=== PATIENT | female | born 1980 | race Caucasian/White ===

== ENCOUNTER 2023-08-21 14:32 | Emergency (ER) | payer SELFPAY ==
[2023-08-21 14:34] VITALS: BP 173/97; PULSE 109; RESP 20; TEMP 36.6; O2SAT 100; BMI 22.1
--- NOTE | 2023-08-21 14:40 | PC.NURSE ---
[facility] AT BEDSIDE
--- NOTE | 2023-08-21 14:41 | ED_ITS ---
Discharge Plan Disposition Patient Disposition: Home, Self-Care Condition: Good Referrals Follow up/Referrals: Provider,Referral, MD [Primary Care Provider] - See instructions Activity Restrictions/Add. Instructions Additional Instructions/Restrictions: Continue to take Motrin 800 mg every 8 hours along with alternating Tylenol 1000 mg every 8 hours as needed for symptoms. Follow-up with PCP or return to ER for any worsening signs or symptoms. Clinical Impressions Clinical Impression: Headache Qualifiers: Headache type: unspecified Headache chronicity pattern: episodic headache Intractability: intractable Qualified Code(s): R51.9 - Headache, unspecified Discharge ED Provider: Bebo Braga General Adult HPI <UMESH Schaeffer - Last Filed: 08/21/23 18:09> General Chief complaint: Headache Stated complaint: headache x 5 days Time Seen by Provider: 08/21/23 14:39 History of Present Illness HPI narrative: Patient presents for evaluation of an intractable migraine headache x 5 days. Patient has been trying [id number] Excedrin that would temporarily make her headache better but not completely go away but it has been persistent for 5 days. Patient denies any other constitutional symptoms including cough fever chest pain nausea vomiting shortness of breath diarrhea hemoptysis hematochezia melena hematemesis hematuria diaphoresis. Related Data Allergies Allergy/AdvReac Type Severity Reaction Status Date / Time amoxicillin Allergy Mild Verified 08/21/23 15:01 iodine Allergy Mild Verified 08/21/23 15:01 Penicillins Allergy Mild Verified 08/21/23 15:01 PFSH <UMESH Schaeffer - Last Filed: 08/21/23 18:09> [facility] Disclaimer: The information contained in this section may have been updated after the patient was seen, as this information can be updated by other users. Social History (Updated 08/21/23 @ 18:09 by UMESH Schaeffer) Smoking Status: Current every day smoker alcohol intake: never current occupational status: employed Travel in the last 8 weeks: None <UMESH Schaeffer - Last Filed: 08/21/23 18:09> ROS Obtained: Yes Systems reviewed as appropriate & no additional complaints except as documented Physical Exam <UMESH Schaeffer - Last Filed: 08/21/23 18:09> General General appearance: alert and in no apparent distress Head Head exam: atraumatic, normocephalic and normal inspection Eye Eye exam: Present normal appearance, PERRL and EOMI ENT ENT exam: Present normal exam, normal oropharynx and mucous membranes moist Neck Neck exam: Present normal inspection, full ROM and other (No nuchal rigidity no meningeal signs); Absent lymphadenopathy Chest Chest inspection: Present normal inspection and symmetric chest wall rise Respiratory Respiratory exam: Present normal lung sounds bilaterally; Absent respiratory distress, wheezes or accessory muscle use Cardiovascular Cardiovascular exam: Present regular rate, normal rhythm, normal heart sounds, +S1 and +S2 Abdominal Exam Abdominal exam: Present soft and normal bowel sounds; Absent tenderness Extremities Exam Extremities exam: Present normal inspection and full ROM Back Exam Back exam: Present normal inspection and full ROM; Absent tenderness Neurological Exam Neurological exam: Present alert and oriented X3 Psychiatric Psychiatric exam: Present normal affect and normal mood Skin Skin exam: Present warm, dry and normal color Medical Decision Making <UMESH Schaeffer - Last Filed: 08/21/23 18:09> Medical Records Medical records reviewed: Yes I reviewed the patient's medical records. Isidro Inquiry Pt receiving controlled substance: No Vital Signs: 08/21/23 14:34 08/21/23 15:43 08/21/23 16:37 Temperature 97.9 F 98.2 F Temperature Source Oral Pulse Rate 66 75 Pulse Rate [Right] 109 H Respiratory Rate 20 16 16 Blood Pressure 120/69 126/75 Blood Pressure [Left Arm] 173/97 H Blood Pressure Mean [Left Arm] 122 Blood Pressure Source Automatic Cuff Blood Pressure Source [Left Arm] Automatic Cuff Blood Pressure Position Sitting 02 Sat by Pulse Oximetry 100 92 L Oxygen Delivery Method Room Air Room Air Room Air Lab Data Lab results reviewed: Yes I reviewed the patient's lab results. Lab Results 08/21/23 14:43: SARS-CoV-2 (PCR) Not detected, Influenza A Untype (PCR) Not de tected, Influenza Type B (PCR) Not detected Orders (Tests/Meds): ED MEDICATIONS Discontinued Medications Generic Name Dose Route Start Last Admin Trade Name Freq PRN Reason Stop Dose Admin Dexamethasone Sodium Phosphate 8 mg 08/21/23 14:42 08/21/23 15:08 Dexamethasone 4mg/Ml 1ml Vial IV 08/21/23 14:43 8 mg ONCE ONE Administration Diphenhydramine HCl 50 mg 08/21/23 14:42 08/21/23 15:07 Diphenhydramine 50mg/Ml Vial IV 08/21/23 14:43 50 mg ONCE ONE Administration Ketorolac Tromethamine 15 mg 08/21/23 14:42 08/21/23 15:09 Ketorolac 30mg/Ml Vial IV 08/21/23 14:43 15 mg ONCE ONE Administration Prochlorperazine Edisylate 10 mg 08/21/23 14:42 08/21/23 15:09 Prochlorperazine 10mg/2ml Vial IV 08/21/23 14:43 10 mg ONCE ONE Administration ORDERS Category Date Time Status Rapid PCR Covid and Flu A/B Stat Lab 08/21/23 14:43 Completed Medical Decision Narrative: In summary patient is a 42-year-old female who presents to the emergency department for evaluation of tractable headache. Patient is hemodynamically stable upon arrival, afebrile. Physical exam is unremarkable with no focal findings including no nuchal rigidity no meningeal signs normal vision and no focal neurologic deficits. Breath sounds are equal bilaterally posterior pharynx is normal with no nodes in the cervical chains. Differential diagnosis includes migraine headache versus possible intracranial abnormality versus viral bacterial infection. Initial workup will be conducted with hematologic labs and COVID and flu swabs. Initial interventions include Compazine Toradol Benadryl and Decadron. Initial workup reviewed by me shows that her hematologic labs are unremarkable and her COVID and flu swabs are negative.. Upon repeat evaluation patient had moderate improvement in her headache symptoms. Given this appropriate for discharge with instruction to continue taking Tylenol Motrin alternating every 4 hours for headache symptoms. Return to PCP or ER for any worsening in her symptoms or change in condition. Patient verbalized understanding and agreement <Bebo Braga MD - Last Filed: 08/22/23 11:19> Vital Signs: 08/21/23 14:34 08/21/23 15:43 08/21/23 16:37 Temperature 97.9 F 98.2 F Temperature Source Oral Pulse Rate 66 75 Pulse Rate [Right] 109 H Respiratory Rate 20 16 16 Blood Pressure 120/69 126/75 Blood Pressure [Left Arm] 173/97 H Blood Pressure Mean [Left Arm] 122 Blood Pressure Source Automatic Cuff Blood Pressure Source [Left Arm] Automatic Cuff Blood Pressure Position Sitting 02 Sat by Pulse Oximetry 100 92 L Oxygen Delivery Method Room Air Room Air Room Air Lab Data Lab Results 08/21/23 14:43: SARS-CoV-2 (PCR) Not detected, Influenza A Untype (PCR) Not detected, Influenza Type B (PCR) Not detected Orders (Tests/Meds): ED MEDICATIONS Discontinued Medications Generic Name Dose Route Start Last Admin Trade Name Paulina PRN Reason Stop Dose Admin Dexamethasone Sodium Phosphate 8 mg 08/21/23 14:42 08/21/23 15:08 Dexamethasone 4mg/Ml 1ml Vial IV 08/21/23 14:43 8 mg ONCE ONE Administration Diphenhydramine HCl 50 mg 08/21/23 14:42 08/21/23 15:07 Diphenhydramine 50mg/Ml Vial IV 08/21/23 14:43 50 mg ONCE ONE Administration Ketorolac Tromethamine 15 mg 08/21/23 14:42 08/21/23 15:09 Ketorolac 30mg/Ml Vial IV 08/21/23 14:43 15 mg ONCE ONE Administration Prochlorperazine Edisylate 10 mg 08/21/23 14:42 08/21/23 15:09 Prochlorperazine 10mg/2ml Vial IV 08/21/23 14:43 10 mg ONCE ONE Administration ORDERS Category Date Time Status Rapid PCR Covid and Flu A/B Stat Lab 08/21/23 14:43 Completed Medical Decision Narrative: In summary patient is a 42-year-old female who presents to the emergency department for evaluation of tractable headache. Patient is hemodynamically stable upon arrival, afebrile. Physical exam is unremarkable with no focal findings including no nuchal rigidity no meningeal signs normal vision and no focal neurologic deficits. Breath sounds are equal bilaterally posterior pharynx is normal with no nodes in the cervical chains. Differential diagnosis includes migraine headache versus possible intracranial abnormality versus viral bacterial infection. Initial workup will be conducted with hematologic labs and COVID and flu swabs. Initial interventions include Compazine Toradol Benadryl and Decadron. Initial workup reviewed by me shows that her hematologic labs are unremarkable and her COVID and flu swabs are negative.. Upon repeat evaluation patient had moderate improvement in her headache symptoms. Given this appropriate for discharge with instruction to continue taking Tylenol Motrin alternating every 4 hours for headache symptoms. Return to PCP or ER for any worsening in her symptoms or change in condition. Patient verbalized understan ding and agreement I was consulted by the CUONG, and we discussed the complexity of the problems being addressed. I approved the treatment and management plan for this patient?s care in the Emergency Department, thus performing a substantive portion of the medical decision making. Bebo Braga MD Critical Care <UMESH Schaeffer - Last Filed: 08/21/23 18:09> Critical Care Time Critical Care Time: No
[2023-08-21 14:59] LABS: Coronavirus 19, PCR Not Detected (NotDetected); Influenza A, PCR Not Detected (NotDetected); Influenza B, PCR Not Detected (NotDetected)
[2023-08-21] MEDS: diphenhydrAMINE 50MG/ML VIAL 50 MG IV (15:07)
[2023-08-21] MEDS: DEXAMETHASONE 4MG/ML 1ML VIAL 8 MG IV (15:08)
[2023-08-21] MEDS: PROCHLORPERAZINE 10MG/2ML VIAL 10 MG IV (15:09)
[2023-08-21] MEDS: KETOROLAC 30MG/ML VIAL 15 MG IV (15:09)
[2023-08-21 15:43] VITALS: BP 120/69; PULSE 66; RESP 16; O2SAT 92
[2023-08-21 16:37] VITALS: BP 126/75; PULSE 75; RESP 16; TEMP 36.8; O2SAT 98
== END 2023-08-21 16:40 | disposition home or self-care (01) ==
PROVIDERS: Physician Assistant; Emergency Provider Emergency Medicine
DX: R51.9 Headache, unspecified (principal); F17.210 Nicotine dependence, cigarettes, uncomplicated
CPT/HCPCS: 87636; 96374; 96375; 99284